=== PATIENT | female | born 1990 | race Caucasian/White ===

== ENCOUNTER 2019-03-17 11:01 | Inpatient (IN) | payer MEDICAID ==
[2019-03-17 12:01] LABS: ABSOLUTE BASOPHILS # (AUTO) 0.1 10^3/uL (0.0-0.2); ABSOLUTE EOSINOPHILS # (AUTO) 0.2 10^3/uL (0.0-0.6); ABSOLUTE LYMPHOCYTES (AUTO) 1.6 10^3/uL (0.5-4.7); ABSOLUTE MONOCYTES (AUTO) 0.8 10^3/uL (0.1-1.4); ABSOLUTE NEUT (AUTO) 12.4 10^3/uL (1.7-8.2); BASOPHILS % (AUTO) 0.5 % (0-2); EOSINOPHILS % (AUTO) 1.4 % (0-6); HEMATOCRIT 29.9 % (36.0-47.0); HEMOGLOBIN 10.1 g/dL (12.0-15.5); LYMPHOCYTES % (AUTO) 10.9 % (13-45); MEAN CORPUSCULAR HEMOGLOBIN 29.7 pg (27.0-33.4); MEAN CORPUSCULAR HGB CONC 33.8 g/dL (32.0-36.0); MEAN CORPUSCULAR VOLUME 88 fl (80-97); MONOCYTES % (AUTO) 5.4 % (3-13); PLATELET COUNT 252 10^3/uL (150-450); RED BLOOD COUNT 3.41 10^6/uL (3.72-5.28); RED CELL DISTRIBUTION WIDTH 13.9 % (11.5-14.0); SEGMENTED NEUTROPHILS % (AUTO) 81.8 % (42-78); TOTAL CELLS COUNTED % (AUTO) 100 %; WHITE BLOOD COUNT 15.2 10^3/uL (4.0-10.5)
[2019-03-17 12:18] LABS: ALBUMIN 3.2 g/dL (3.5-5.0); ALKALINE PHOSPHATASE 141 U/L (38-126); ANION GAP 9 (5-19); ASPARTATE AMINO TRANSFERASE 20 U/L (14-36); BILIRUBIN,DIRECT 0.1 mg/dL (0.0-0.4); BILIRUBIN,TOTAL 0.2 mg/dL (0.2-1.3); BLOOD UREA NITROGEN 4 mg/dL (7-20); CALCIUM 8.8 mg/dL (8.4-10.2); CARBON DIOXIDE 23 mmol/L (22-30); CHLORIDE 103 mmol/L (98-107); GLUCOSE 81 mg/dL (75-110); TOTAL PROTEIN 5.7 g/dL (6.3-8.2); URIC ACID 5.6 mg/dL (2.5-6.2)
[2019-03-17 12:21] LABS: POTASSIUM 2.9 mmol/L (3.6-5.0)
[2019-03-17 12:35] LABS: APPEARANCE,URINE CLOUDY; BILIRUBIN,URINE NEGATIVE (NEGATIVE); COLOR,URINE YELLOW; GLUCOSE, URINE NEGATIVE (NEGATIVE); KETONES,URINE NEGATIVE (NEGATIVE); LEUKOCYTE ESTERASE,URINE MODERATE (NEGATIVE); NITRITE,URINE NEGATIVE (NEGATIVE); PROTEIN,URINE NEGATIVE (NEGATIVE); URINE SPECIFIC GRAVITY 1.002; UROBILINOGEN,URINE NEGATIVE mg/dL (<2.0)
[2019-03-17 12:59] LABS: URINE AMPHETAMINES SCREEN NEGATIVE; URINE BARBITURATES SCREEN NEGATIVE; URINE BENZODIAZEPINES SCREEN NEGATIVE; URINE COCAINE SCREEN NEGATIVE; URINE MARIJUANA (THC) SCREEN NEGATIVE; URINE METHADONE SCREEN NEGATIVE; URINE PHENCYCLIDINE SCREEN NEGATIVE
[2019-03-17 13:11] LABS: UR PRO/CREAT RATIO RESULT 1.7 mg/mg (0.0-0.2); URINE CREATININE 19.6 mg/dL (16-327); URINE PROTEIN 32.9 mg/dL (<12)
[2019-03-17] MEDS ORDERED: BETAMET ACET/BETAMET NA INJ 6 MG/1 ML IM SCH (13:30)
[2019-03-17] MEDS ORDERED: RINGERS SOLUTION,LACTATED 1,000 ML IV PRN (13:52)
[2019-03-17] MEDS ORDERED: BETAMET ACET/BETAMET NA INJ 6 MG/1 ML ONE (14:44)
[2019-03-17] MEDS: LABETALOL HCL 200 MG TABLET PO SCH ×2 (16:14→22:39)
[2019-03-17 17:57] LABS: CHLAM PCR NOT DETECTED (NOT DETECT)
[2019-03-17] MEDS: POTASSIUM CHLORIDE 10 MEQ CAPSULE.ER PO SCH (19:03)
[2019-03-17] MEDS: FAMOTIDINE 20 MG TABLET PO SCH (22:40)
[2019-03-18] MEDS ORDERED: MAG HYDROX/AL HYDROX/SIMETH SUSP 30 ML UDCUP PO ONE (02:00)
[2019-03-18 06:28] LABS: HEMATOCRIT 30.3 % (36.0-47.0); MEAN CORPUSCULAR HEMOGLOBIN 29.2 pg (27.0-33.4); MEAN CORPUSCULAR VOLUME 88 fl (80-97); PLATELET COUNT 272 10^3/uL (150-450); RED BLOOD COUNT 3.43 10^6/uL (3.72-5.28); WHITE BLOOD COUNT 19.3 10^3/uL (4.0-10.5)
[2019-03-18 06:49] LABS: ALBUMIN 3.3 g/dL (3.5-5.0); ALKALINE PHOSPHATASE 149 U/L (38-126); ANION GAP 11 (5-19); ASPARTATE AMINO TRANSFERASE 24 U/L (14-36); BILIRUBIN,DIRECT 0.2 mg/dL (0.0-0.4); BILIRUBIN,TOTAL 0.2 mg/dL (0.2-1.3); BLOOD UREA NITROGEN 6 mg/dL (7-20); CALCIUM 9.4 mg/dL (8.4-10.2); CARBON DIOXIDE 23 mmol/L (22-30); CHLORIDE 103 mmol/L (98-107); GLUCOSE 115 mg/dL (75-110); POTASSIUM 3.4 mmol/L (3.6-5.0); URIC ACID 6.2 mg/dL (2.5-6.2)
[2019-03-18 06:55] LABS: ABSOLUTE LYMPHOCYTES# (MANUAL) 0.6 10^3/uL (0.5-4.7); ABSOLUTE MONOCYTES # (MANUAL) 0.4 10^3/uL (0.1-1.4); BAND NEUTROPHILS % (MANUAL) 8 % (3-5); BASOPHILS % (MANUAL) 0 % (0-2); EOSINOPHILS % (MANUAL) 0 % (0-6); LYMPHOCYTES % (MANUAL) 3 % (13-45); MONOCYTES % (MANUAL) 2 % (3-13); NUCLEATED RED BLOOD CELLS 1 /100 WBC (0); SEGMENTED NEUTROPHILS % (MAN) 87 % (42-78); TOTAL CELLS COUNTED 100
[2019-03-18 06:56] LABS: ANISOCYTOSIS 1+; PLATELET COMMENT ADEQUATE; POLYCHROMASIA 1+
[2019-03-18] MEDS: POTASSIUM CHLORIDE 10 MEQ CAPSULE.ER PO SCH (10:32)
[2019-03-18] MEDS: FAMOTIDINE 20 MG TABLET PO SCH ×2 (10:33→21:30)
[2019-03-18] MEDS: PRENATAL VITAMIN W DHA CAPSULE PO SCH (10:33)
[2019-03-18] MEDS: LABETALOL HCL 200 MG TABLET PO SCH ×2 (10:33→21:30)
[2019-03-18] MEDS ORDERED: BETAMET ACET/BETAMET NA INJ 6 MG/1 ML IM SCH (15:00)
[2019-03-18 15:04] LABS: 24 HOUR URINE PROTEIN RESULT 1035 mg/day (42-225); URINE PROTEIN 46.2 mg/dL (<12)
[2019-03-18] MEDS: FERROUS SULFATE 325 MG TABLET PO SCH (15:25)
[2019-03-19] MEDS: LABETALOL HCL 200 MG TABLET PO SCH (10:04)
--- NOTE | 2019-03-19 10:05 | PDOC DISCHARGE SUMMARY ---
General - Admit/Disc Date/PCP Admission Date/Primary Care Provider: 03/17/19 13:42 DI QUIJANO MD Discharge Date: 03/19/19 - Additional Information Resuscitation Status: Full Code Discharge Diet: As Tolerated Discharge Activity: Activity As Tolerated, Balance Activity w/Rest, Walk Frequently Prescriptions: Labetalol HCl [Normodyne 200 mg Tablet] 100 mg PO Q12 #60 tablet Home Medications: Folic Acid [Folvite 1 mg Tablet] 1 mg PO DAILY 03/17/19 Pnv No.95/Ferrous Fum/Folic AC [ Vitamin Tablet] 1 each PO DAILY 03/17/19 Ranitidine HCl [Zantac] 150 mg PO BID 03/17/19 Labetalol HCl [Normodyne 200 mg Tablet] 100 mg PO Q12 #60 tablet 03/19/19 History of Present Illness History of Present Illness: ELIUD CHENEY is a 29 year old female 33 weeks observed for pre-eclampsia Hospital Course Hospital Course: blood pressure are in acceptable range discussed need for surveillance and to return if symptoms warrant Physical Exam - Physical Exam Vital Signs: Temp Pulse Resp BP Pulse Ox 97.5 F 71 14 147/86 H 99 03/19/19 07:48 03/19/19 07:48 03/19/19 07:48 03/19/19 07:48 03/19/19 07:48 Intake & Output 03/18/19 03/19/19 03/20/19 06:59 06:59 06:59 Intake Total 1550 Balance 1550 Weight 103.2 kg 103 kg General appearance: PRESENT: no acute distress Result Laboratory Results: 03/18/19 05:05 03/18/19 05:05 03/17/19 14:30 Ur 24 Hour Volume 2240 Ur Total Protein 24 Hr 1035 H Plan Discharge Plan: continue labetalol follow up in am for nst/neo return if symptoms warrant Time Spent: Less than 30 Minutes Acute Heart Failure - Is this a Heart Failure Patient?: No
[2019-03-19] MEDS: FAMOTIDINE 20 MG TABLET PO SCH (10:06)
[2019-03-19] MEDS: FERROUS SULFATE 325 MG TABLET PO SCH (10:06)
[2019-03-19] MEDS: POTASSIUM CHLORIDE 10 MEQ CAPSULE.ER PO SCH (10:07)
[2019-03-19] MEDS: PRENATAL VITAMIN W DHA CAPSULE PO SCH (10:07)
--- NOTE | 2019-03-19 10:30 | PDOC PROGRESS REPORT ---
Subjective Progress Note for:: 03/19/19 Subjective:: (Late entry note from 18 March 2019-afternoon) Pt reports good fm, no vb, no lof and no regular contractions. Pt denies headaches, visual changes, epigastric and RUQ pain. Pt states since she has been hospitalized she has less courtesy booth cashier facial swelling. Reason For Visit: - preeclampsia Physical Exam - Physical Exam Vital Signs: Temp Pulse Resp BP Pulse Ox 97.5 F 71 14 147/86 H 99 03/19/19 07:48 03/19/19 07:48 03/19/19 07:48 03/19/19 07:48 03/19/19 07:48 Intake & Output 03/18/19 03/19/19 03/20/19 06:59 06:59 06:59 Intake Total 1550 Balance 1550 Weight 103.2 kg 103 kg General appearance: PRESENT: no acute distress, cooperative, obese, well-devel oped Head exam: PRESENT: atraumatic, normocephalic Eye exam: PRESENT: EOMI Mouth exam: PRESENT: moist Pulses: PRESENT: normal dorsalis pedis pul GI/Abdominal exam: PRESENT: soft, other - gravid and NT Extremities exam: PRESENT: +1 edema, other - negative homans Musculoskeletal exam: PRESENT: ambulatory, full ROM Neurological exam: PRESENT: alert, awake, oriented to person, oriented to place, oriented to time, oriented to situation, normal gait Psychiatric exam: PRESENT: normal mood Skin exam: PRESENT: intact, warm Result Laboratory Results: 03/18/19 05:05 03/18/19 05:05 03/17/19 14:30 Ur 24 Hour Volume 2240 Ur Total Protein 24 Hr 1035 H Assessment & Plan - Diagnosis (1) Pre-eclampsia Qualifiers: Trimester: third trimester Qualified Code(s): O14.93 - Unspecified pre- eclampsia, third trimester Is this a current diagnosis for this admission?: Yes - Plan Summary Plan Summary: Continue current dose of labetalol Patient to receive second dose of BTM for status and noted preeclampsia GBS pending Expect will be able to discharge tomorrow morning 19 March 2019 on modified bed rest Plan of care going forward until delivery discussed Discussed with pt and mild preeclampsia need to deliver late or early term, patient and understanding; Questions answered
[2019-03-19 10:54] VITALS: BP 141/92
== END 2019-03-19 11:09 | disposition home or self-care (01) | DRG 833 ==
LOC: LC 11:01 → LR 13:42 → 2N 15:35
PROVIDERS: ADMIT Obstetrics & Gynecology Gynecology; ATTEND Obstetrics & Gynecology Gynecology
DX: O14.93 Unspecified pre-eclampsia, third trimester (principal); O99.213 Obesity complicating pregnancy, third trimester; Z3A.33 33 weeks gestation of pregnancy
CPT/HCPCS: 36415; 80053; 80307; 81001; 82570; 83615; 84156; 84550; 85025; 86592; 86850; 86900; 86901; 87081; 87086; 87491; 87591; J0702; J3490

== ENCOUNTER 2019-03-20 06:35 | Inpatient (IN) | payer MEDICAID ==
--- NOTE | 2019-03-20 06:41 | Admission Physical ---
Datetime Report Generated by CPN: 03/20/2019 06:41 CURRENT ADMISSION Chief Complaint: Sent from OB Office for Evaluation and Treatment - Please Specify Chief Complaint Other: for severe range BPs in office today Indication for Induction: Not Applicable Admit Impression : , Intrauterine ; No Active Labor Admit Plan: Admit to Unit Admit Plan- Other: then transfer to post ALLERGIES Medication Allergies: No Medication Allergies: No Known Allergies (03/17/2019) Latex: No Latex Allergies OBSTETRICAL HISTORY EDC: 05/07/2019 00:00 : 1 Para: 0 Term: 0 : 0 SAB: 0 IAB: 0 Livin Gestational Diabetes: No Rh Sensitization: No Incompetent Cervix: No MALINI: No Infertility: No ART Treatment: No Uterine Anomaly: No IUGR: No Hx Previous C/S: No Macrosomia: No Hx Loss/Stillborn: No PIH: Yes Hx : No Placenta Previa/Abruption: No Depression/PP Depression: No PTL/PROM: No Post Hemorrhage: No Current Procedures: Ultrasound; NST SEE RECORDS Alcohol: No Marijuana : No Cocaine: No Other Illicit Drugs: No Cigarettes: Never Smoker. [id number] MEDICAL HISTORY Diabetes: No Blood Transfusion: No Pulmonary Disease (Asthma, TB): No Breast Disease: No Hypertension: No Automotive Paint Technician Surgery: Yes Heart Disease: No Hosp/Surgery: No Autoimmune Disorder: No Anesthetic Complications: No Kidney Disease: No Abnormal Pap Smear: Yes Neuro/Epilepsy: No Psychiatric Disorders: No Other Medical Diseases: No Hepatitis/Liver Disease: No Significant Family History: No Varicosities/Phlebitis: No Trauma/Violence : No Thyroid Dysfunction: No Medical History Comments: Has had cone bx INFECTIOUS HISTORY Gonorrhea: No Genital Herpes: No Chlamydia: Yes Tuberculosis: No Syphilis: No Hepatitis: No HIV/AIDS Exposure: No Rash or Viral Illness: No HPV: No Infectious History Comments: Chl 2011 PHYSICAL EXAM General: Normal HEENT: Normal Neurologic: Abnormal Thyroid: Deferred Heart: Normal Lungs: Normal Breast: Deferred Back: Normal Abdomen: Normal Genitourinary Exam: Normal Extremities: Abnormal DTRs: Abnormal Pelvic Type: Adequate Physical Exam Comments: DTRs 3+/3+ with + clonus Vital Signs: Reviewed Details Vital Signs: high BP VAGINAL EXAM Contraction Comments: none FETUS A EGA: 32.5 Monitoring: External US FHR- Baseline: 135 Variability: Moderate 6-25bpm Accelerations: 15X15 Decelerations: None FHR Category: Category I Presentation: Breech Presentation- Other: by sono today Admit Comment: G1 sent from office for evaluation for elevated BP today only. denies JOEL/visual changes/RUQ pain. discussed POC with dr patrick. will admit, get GBS culture, obtain 24h urine for protein, give steroids PLANS FOR LABOR AND DELIVERY Labor and Delivery: None Pain Management: Epidural Feeding Preference: Breast Benefit of Breast Feed Discussed: Yes Circumcision: N/A INFORMED CONSENT Assignment: Arun Patrick MD Signature: with User ID: [email or web address] : with User ID: [email or web address]
[2019-03-20] MEDS ORDERED: HYDRALAZINE HCL INJ/PF 20 MG/1 ML SDV ONE (06:58)
[2019-03-20 07:22] LABS: HEMOGLOBIN 9.1 g/dL (12.0-15.5); MEAN CORPUSCULAR HEMOGLOBIN 30.1 pg (27.0-33.4); MEAN CORPUSCULAR HGB CONC 33.7 g/dL (32.0-36.0); MEAN CORPUSCULAR VOLUME 89 fl (80-97); PLATELET COUNT 242 10^3/uL (150-450); RED BLOOD COUNT 3.03 10^6/uL (3.72-5.28); RED CELL DISTRIBUTION WIDTH 14.1 % (11.5-14.0); WHITE BLOOD COUNT 19.9 10^3/uL (4.0-10.5)
[2019-03-20] MEDS ORDERED: HYDRALAZINE HCL INJ/PF 20 MG/1 ML SDV IV ONE (07:29)
[2019-03-20 07:30] LABS: ALBUMIN 3.2 g/dL (3.5-5.0); ALKALINE PHOSPHATASE 137 U/L (38-126); ANION GAP 9 (5-19); ASPARTATE AMINO TRANSFERASE 26 U/L (14-36); BILIRUBIN,DIRECT 0.2 mg/dL (0.0-0.4); BILIRUBIN,TOTAL 0.2 mg/dL (0.2-1.3); BLOOD UREA NITROGEN 8 mg/dL (7-20); CALCIUM 8.9 mg/dL (8.4-10.2); CARBON DIOXIDE 25 mmol/L (22-30); CHLORIDE 104 mmol/L (98-107); GLUCOSE 91 mg/dL (75-110); POTASSIUM 3.1 mmol/L (3.6-5.0); URIC ACID 6.6 mg/dL (2.5-6.2)
[2019-03-20 07:38] LABS: APPEARANCE,URINE SLIGHTLY-CLOUDY; BILIRUBIN,URINE NEGATIVE (NEGATIVE); COLOR,URINE YELLOW; GLUCOSE, URINE NEGATIVE (NEGATIVE); KETONES,URINE NEGATIVE (NEGATIVE); LEUKOCYTE ESTERASE,URINE NEGATIVE (NEGATIVE); NITRITE,URINE NEGATIVE (NEGATIVE); PROTEIN,URINE >=500 mg/dL (NEGATIVE); URINE SPECIFIC GRAVITY 1.012; UROBILINOGEN,URINE NEGATIVE mg/dL (<2.0)
[2019-03-20 07:48] LABS: ABSOLUTE LYMPHOCYTES# (MANUAL) 2.4 10^3/uL (0.5-4.7); BAND NEUTROPHILS % (MANUAL) 1 % (3-5); BASOPHILS % (MANUAL) 0 % (0-2); EOSINOPHILS % (MANUAL) 0 % (0-6); LYMPHOCYTES % (MANUAL) 12 % (13-45); METAMYELOCYTES % (MANUAL) 2 % (0); MONOCYTES % (MANUAL) 0 % (3-13); NUCLEATED RED BLOOD CELLS 1 /100 WBC (0); SEGMENTED NEUTROPHILS % (MAN) 85 % (42-78); TOTAL CELLS COUNTED 100
[2019-03-20 07:49] LABS: ANISOCYTOSIS SLIGHT; OVALOCYTES SLIGHT; PLATELET COMMENT ADEQUATE; POIKILOCYTOSIS SLIGHT; POLYCHROMASIA SLIGHT; TEAR DROP CELLS SLIGHT
[2019-03-20 08:03] LABS: URINE CREATININE 100.5 mg/dL (16-327)
[2019-03-20 08:11] LABS: URINE AMPHETAMINES SCREEN NEGATIVE; URINE BARBITURATES SCREEN NEGATIVE; URINE BENZODIAZEPINES SCREEN NEGATIVE; URINE MARIJUANA (THC) SCREEN NEGATIVE; URINE METHADONE SCREEN NEGATIVE; URINE PHENCYCLIDINE SCREEN NEGATIVE
[2019-03-20] MEDS ORDERED: MAGNESIUM SULFATE 20 GM/500 ML RTUINJ IV ONE ×2 (08:13→10:18)
[2019-03-20] MEDS ORDERED: MAGNESIUM SULFATE 4 GM/100 ML RTUPB IV ONE (08:13)
[2019-03-20 08:17] LABS: UR PRO/CREAT RATIO RESULT 3.6 mg/mg (0.0-0.2)
[2019-03-20 08:19] LABS: URINE COCAINE SCREEN NEGATIVE
[2019-03-20] MEDS ORDERED: CITRIC ACID/SODIUM CITRATE ORAL SOLN 15 ML UDCUP ONE (08:40)
[2019-03-20] MEDS ORDERED: CEFAZOLIN 1 GM/D5W RTU 1 GM/50 ML RTUPB IV ONE ×2 (08:40→08:41)
--- NOTE | 2019-03-20 08:51 | Admission Physical ---
Datetime Report Generated by CPN: 03/20/2019 08:51 CURRENT ADMISSION Chief Complaint: Signs/Symptoms Gestational HTN Chief Complaint Other: pt with PreE with >1gm of protein in 24 hour urine. received ACS over the weekend, came in earlier this AM with worsening pressures. Indication for Induction: Not Applicable Admit Impression : , Intrauterine ; Primary Section Admit Impression- Other: Breech presentation, BPP subjectively low. CHARLES 12 Admit Plan: Admit to Unit; Initiate Section Protocol Admit Plan- Other: Magnesium Sulfate started with 4 gm load. ALLERGIES Medication Allergies: No Medication Allergies: No Known Allergies (03/20/2019) Latex: No Latex Allergies OBSTETRICAL HISTORY EDC: 05/07/2019 00:00 : 1 Para: 0 Term: 0 : 0 SAB: 0 IAB: 0 Livin Gestational Diabetes: No Rh Sensitization: No Incompetent Cervix: No MALINI: No Infertility: No ART Treatment: No Uterine Anomaly: No IUGR: No Hx Previous C/S: No Macrosomia: No Hx Loss/Stillborn: No PIH: Yes Hx : No Placenta Previa/Abruption: No Depression/PP Depression: No PTL/PROM: No Post Hemorrhage: No Current Procedures: Ultrasound; NST Obstetrical History Comments: g1-current pree SEE RECORDS Alcohol: No Marijuana : No Cocaine: No Other Illicit Drugs: No Cigarettes: Never Smoker. [id number] MEDICAL HISTORY Diabetes: No Blood Transfusion: No Pulmonary Disease (Asthma, TB): No Breast Disease: No Hypertension: No Food Crops Farm Hand Surgery: Yes Heart Disease: No Hosp/Surgery: No Autoimmune Disorder: No Anesthetic Complications: No Kidney Disease: No Abnormal Pap Smear: Yes Neuro/Epilepsy: No Psychiatric Disorders: No Other Medical Diseases: No Hepatitis/Liver Disease: No Significant Family History: No Varicosities/Phlebitis: No Trauma/Violence : No Thyroid Dysfunction: No Medical History Comments: Has had cone bx INFECTIOUS HISTORY Gonorrhea: No Genital Herpes: No Chlamydia: Yes Tuberculosis: No Syphilis: No Hepatitis: No HIV/AIDS Exposure: No Rash or Viral Illness: No HPV: No Infectious History Comments: Chl 2011 PHYSICAL EXAM General: Normal HEENT: Normal Neurologic: Normal Thyroid: Normal Heart: Normal Lungs: Normal Breast: Normal Back: Normal Abdomen: Normal Genitourinary Exam: Normal Extremities: Normal DTRs: Normal Pelvic Type: Adequate Physical Exam Comments: DTRs 3+/3+ with + clonus Vital Signs: Reviewed Details Vital Signs: systolics 160s-200s VAGINAL EXAM Contraction Comments: none FETUS A EGA: 33.1 Monitoring: External US FHR- Baseline: 160 Variability: Minimal - Undetectable to <=5bpm Accelerations: Absent Decelerations: None FHR Category: Category III Estimated Weight (gm): 2000 Presentation: Breech Presentation- Other: by sono today Admit Comment: d/w pt and FOB regarding delivery due to BPs and well being. Explained that Mag and ACS protocol will help, but cannot gaurantee baby's well being and may still required tertiary care interventions depending on how baby responds to delivery. voice understanding. will proceed with primary c/s for breech presentation PLANS FOR LABOR AND DELIVERY Labor and Delivery: None Pain Management: Epidural Feeding Preference: Breast Benefit of Breast Feed Discussed: Yes Circumcision: N/A INFORMED CONSENT Assignment: Arun Berg MD Signature: with User ID: [email or web address] : with User ID: [email or web address]
[2019-03-20] MEDS ORDERED: CEFAZOLIN SODIUM 2 GM in DEXTROSE 5%-WATER 50 ML IV PRN (08:55)
[2019-03-20] MEDS ORDERED: MORPHINE SULFATE 10 MG/ML INJ ONE ×3 (09:03→16:07)
[2019-03-20] MEDS ORDERED: OXYTOCIN/NORMAL SALINE 20 UNIT/1,000 ML RTUINJ ONE (09:03)
[2019-03-20] MEDS ORDERED: MIDAZOLAM 2 MG/2 ML INJ ONE ×2 (09:03→09:34)
[2019-03-20] MEDS ORDERED: OXYTOCIN 10 UNIT/ML VIAL ONE (09:03)
[2019-03-20] MEDS ORDERED: ONDANSETRON HCL INJ/PF 4 MG/2 ML SDV ONE (09:04)
--- NOTE | 2019-03-20 09:26 | RADIOLOGY REPORT (SQ) ---
EXAM DESCRIPTION: U/S PROFILE W/O STRESS COMPLETED DATE/TIME: 03/20/2019 9:13 am REASON FOR STUDY: BPP PRE e COMPARISON: None. TECHNIQUE: Limited waed-scale realtime and static images of the fetus to measure specified parameter s. LIMITATIONS: None. FINDINGS: HEART RATE: 144 beats per minute. CHARLES: 12.6 cm. BREATHING MOVEMENT: 0 points. MOVEMENT: 0 points. POSTURE AND TONE: 0 points. QUALITATIVE CHARLES: 2 points. OTHER: No other significant finding. IMPRESSION: BIOPHYSICAL PROFILE: 09/16. Trimester of : Third - 28 weeks to delivery RECOMMENDATION: The exam was performed as a portable study in the Labor and Delivery Department. Th e ordering physician ended the study to take the patient to the operating room. COMMENT: BREATHING MOVEMENTS: 2 POINTS: PRESENT 0 POINTS: ABSENT MOTION: 2 POINTS: PRESENT 0 POINTS: ABSENT TONE: 2 POINTS: PRESENT 0 POINTS: ABSENT AMNIOTIC FLUID VOLUME: 2 POINTS: LARGEST POCKET GREATER THAN 2 CM DEPTH. 0 POINTS: NO POCKET OF 2 CM. TECHNICAL DOCUMENTATION: JOB ID: [id number] [employer]- All Rights Reserved Reading location - IP/workstation name: [email or web address]
--- NOTE | 2019-03-20 09:29 | RADIOLOGY REPORT (SQ) ---
EXAM DESCRIPTION: U/S OB LIMITED COMPLETED DATE/TIME: 03/20/2019 9:13 am REASON FOR STUDY: CHARLES and position PRE e COMPARISON: None. TECHNIQUE: Limited transabdominal grayscale ultrasound for evaluation of specific requested obstetri maximiliano parameters. LIMITATIONS: None. FINDINGS: CHARLES: 12.4 cm. FHR: 150 beats per minute. PRESENTATION: Breech. PLACENTA: Fundal ANATOMY: Not assessed OTHER: No other significant findings. IMPRESSION: LIMITED OBSTETRICAL ULTRASOUND WITH MEASURED PARAMETERS DELINEATED ABOVE. Trimester of : Third trimester - 28 weeks to delivery. COMMENT: The exam was performed as a portable study in the Labor and Delivery Department. The order ing physician ended the study to take the patient to the operating room. TECHNICAL DOCUMENTATION: JOB ID: [id number] [employer]- All Rights Reserved Reading location - IP/workstation name: [email or web address]
[2019-03-20] MEDS ORDERED: OXYCODONE-ACETAMINOPHEN 5-325 MG TABLET PO PRN (10:06)
[2019-03-20] MEDS ORDERED: SIMETHICONE 80 MG TAB.CHEW PO PRN (10:06)
[2019-03-20] MEDS ORDERED: MEASLES,MUMPS&RUBELLA VACC/PF 0.5 ML VIAL SUBCUT PRN (10:06)
[2019-03-20] MEDS ORDERED: ACETAMINOPHEN 325 MG TABLET PO PRN (10:06)
[2019-03-20] MEDS ORDERED: RINGERS SOLUTION,LACTATED 1,000 ML IV PRN (10:06)
[2019-03-20] MEDS ORDERED: ACETAMINOPHEN 1,000 MG/100 ML RTUPB IV PRN (10:06)
[2019-03-20] MEDS ORDERED: DIPH/PERTUSS(ACELL)/TETANUS VAC/PF 0.5 ML SYR (>=10YO) IM PRN (10:06)
[2019-03-20] MEDS ORDERED: PROMETHAZINE HCL INJ 25 MG/1 ML VIAL IV PRN (10:06)
[2019-03-20] MEDS ORDERED: OXYTOCIN/NORMAL SALINE 20 UNIT/1,000 ML RTUINJ IV PRN (10:06)
--- NOTE | 2019-03-20 10:12 | Operative Report ---
Operative Report DATE OF SURGERY: 03/20/19 PREOPERATIVE DIAGNOSIS: IUP @ 33 1/7 wks. Severe Pre Eclampsia, breech present ation, non-reassuring status POSTOPERATIVE DIAGNOSIS: Same OPERATION: Low transverse hysterotomy section SURGEON: JONATHAN RHOADES ANESTHESIA: Spinal TISSUE REMOVED OR ALTERED: placenta COMPLICATIONS: none ESTIMATED BLOOD LOSS: 750 cc INTRAOPERATIVE FINDINGS: Normal uterus tubes and ovaries were consistent with gestational age PROCEDURE: PROCEDURE IN DETAIL: The patient was taken to the operating room, prepared and draped in a normal sterile fashion in a supine position with a leftward tilt. A transverse skin incision was made with a scalpel and carried through to the underlying layer of fascia with the same scalpel. The fascia was excised in the midline and extended laterally with Jorge A. The fascia was then dissected from the rectus muscle sharply with Jorge A and the rectus muscle was divided and the peritoneal cavity was entered sharply with the same Metzenbaum. With good visualization of the bladder and the uterus the bladder blade was inserted. The hysterotomy was nicked with a scalpel and extended laterally with surgeon finger fraction. The was then delivered atraumatically. The nose and mouth were suctioned with a suction bulb, the cord was clamped and cut and handed off to awaiting pediatricians. Cord blood was collected. The placenta was removed manually. The uterus was exteriorized and cleared of clots and debris. The hysterotomy was closed with 0 Monocryl in a running, locked fashion. A second layer of the same suture was used to imbricate to ensure hemostasis. The uterus was returned to the abdomen and peritoneal cavity was cleared of clots and debris. The rectus muscle and peritoneum were repaired with mattress stitch of 2-0 Chromic. The fascia was closed with 0-Vicryl. The subcutaneous layer was closed with plain catgut and the skin was closed with 4-0 Vicryl. The patient tolerated the procedure well. Sponge, lap, and needle counts correct x2 and the patient was taken to recovery in stable condition.
[2019-03-20] MEDS ORDERED: FENTANYL CITRATE INJ/PF 100 MCG/2 ML AMPUL ONE (10:47)
[2019-03-20] MEDS ORDERED: FENTANYL CITRATE INJ/PF 100 MCG/2 ML AMPUL IV ONE (11:08)
[2019-03-20] MEDS: MORPHINE SULFATE 10 MG/ML INJ IV PRN ×2 (11:56→16:14)
[2019-03-20] MEDS ORDERED: KETOROLAC TROMETHAMINE INJ/PF 30 MG/1 ML SDV ONE (17:29)
[2019-03-20] MEDS ORDERED: OXYCODONE-ACETAMINOPHEN 5-325 MG TABLET ONE ×2 (17:29→22:17)
[2019-03-20] MEDS: OXYCODONE-ACETAMINOPHEN 5-325 MG TABLET PO PRN ×2 (17:33→22:19)
[2019-03-20] MEDS: KETOROLAC TROMETHAMINE INJ/PF 30 MG/1 ML SDV IV SCH (17:33)
[2019-03-21] MEDS: KETOROLAC TROMETHAMINE INJ/PF 30 MG/1 ML SDV IV SCH ×3 (02:32→17:37)
[2019-03-21 06:59] LABS: HEMATOCRIT 26.2 % (36.0-47.0); HEMOGLOBIN 8.9 g/dL (12.0-15.5); MEAN CORPUSCULAR HEMOGLOBIN 30.2 pg (27.0-33.4); MEAN CORPUSCULAR VOLUME 89 fl (80-97); PLATELET COUNT 240 10^3/uL (150-450); RED BLOOD COUNT 2.94 10^6/uL (3.72-5.28); RED CELL DISTRIBUTION WIDTH 14.5 % (11.5-14.0); WHITE BLOOD COUNT 13.3 10^3/uL (4.0-10.5)
[2019-03-21] MEDS: DOCUSATE SODIUM 100 MG CAPSULE PO SCH ×3 (07:39→17:36)
[2019-03-21] MEDS: PRENATAL VITAMIN W DHA CAPSULE PO SCH (09:59)
[2019-03-21] MEDS: OXYCODONE-ACETAMINOPHEN 5-325 MG TABLET PO PRN ×2 (10:14→18:25)
--- NOTE | 2019-03-21 12:09 | PDOC PROGRESS REPORT ---
Subjective-OB Progress Note for:: 03/21/19 Subjective: Resting n bed, states baby is stable, pain under control, eating well, passing gas, pain under control Physical Exam (OB) Vital Signs: Temp Pulse Resp BP Pulse Ox 98.6 F 84 16 156/98 H 96 03/21/19 08:29 03/21/19 08:29 03/21/19 08:29 03/21/19 08:29 03/21/19 08:29 Intake & Output 03/20/19 03/21/19 03/22/19 06:59 06:59 06:59 Output Total 875 Balance -875 Weight 100 kg - PIH/Pre-Eclampsia Headache: Absent Epigastric Pain: No Visual Changes: No - Dressing Removed: No - opsite Incision: Dressing Closure Type: opsite - Lochia Lochia Amount: Scant < 10 ml Lochia Color: Rubra/Red - Abdomen Description: Tender, Soft Hernia Present: No Fundal Description: Firm, Midline Fundal Height: u/u - u/2 Objective-Diagnostic Laboratory: 03/21/19 06:40 03/20/19 06:58 03/20/19 03/21/19 06:58 06:40 WBC 13.3 H RBC 2.94 L Hgb 8.9 L Hct 26.2 L MCV 89 MCH 30.2 MCHC 34.0 RDW 14.5 H Plt Count 240 Blood Type O POSITIVE Antibody Screen NEGATIVE Assessment and Plan(PN) - Assessment and Plan (1) Breech presentation delivered Is this a current diagnosis for this admission?: Yes (2) delivered by section, 1,750-1,999 grams, 33-34 completed weeks Is this a current diagnosis for this admission?: Yes (3) Pre-eclampsia Qualifiers: Trimester: third trimester Is this a current diagnosis for this admission?: Yes - Time Spent with Patient Time with patient: Less than 15 minutes Medications reviewed and adjusted accordingly: Yes - Disposition Anticipated Discharge: Home Within: within 48 hours
[2019-03-21] MEDS: LABETALOL HCL 200 MG TABLET PO SCH ×2 (14:32→21:25)
[2019-03-21] MEDS: IBUPROFEN 800 MG TABLET PO SCH ×2 (17:36→23:17)
[2019-03-22] MEDS: KETOROLAC TROMETHAMINE INJ/PF 30 MG/1 ML SDV IV SCH ×3 (01:55→17:12)
[2019-03-22] MEDS: IBUPROFEN 800 MG TABLET PO SCH ×4 (05:23→23:29)
--- NOTE | 2019-03-22 08:43 | Delivery Summary ---
Del Sum A-C Datetime Report Generated by CPN: 03/22/2019 08:43 DELIVERY PERSONNEL DELIVERY PERSONNEL: [id number] Delivery Doctor:: Elba Arevalo MD Anesthesiologist:: Price Garrison MD CORN COOKER:: Alex Lacey CRNA Labor and Delivery Nurse:: Omaira Morin RN Wire Mill Operator:: Omaira Morin RN Nursery Nurse:: Audrey Florez RN Studio Couch Frame Builder/UNION LABORER: Sobia Jorge CST Studio Couch Frame Builder/UNION LABORER: Fernanda Quiros CST Studio Couch Frame Builder/UNION LABORER: Fernanda Quiros, MICROCOMPUTER SUPPORT SPECIALIST MATERNAL INFORMATION Delivery Anesthesia: Spinal Medications After Delivery: Pitocin Drip 20 Units/1000ml NSS Delivery QBL: 770 Complication Details: pre eclampsia LABOR SUMMARY EDC: 05/07/2019 00:00 No. Babies in Womb: 1 Attempted: No Labor Anesthesia: None LABOR INFORMATION Reason for Induction: Not Applicable Oxytocin: N/A Group B Beta Strep: 1 NO GROUP B STREPTOCOCCUS RECOVERED Steroids Given: None Reason Steroids Not Administered: Not Applicable MEMBRANES Membranes Rupture Method: Artificial STAGES OF LABOR Stage 3 hr: 0 Stage 3 min: 0 CSECTION DELIVERY Primary Indication: Breech Presentation Secondary Indication: Severe PIH, Unfavorable Cervix CSection Urgency: Non-Scheduled CSection Incidence: Primary Labor: N/A Elective: Nonelective CSection Incision: Lower Uterine Transverse BABY A INFORMATION Delivery Date/Time: 03/20/2019 09:40 Method of Delivery: Born in Route : No : N/A Forceps: N/A Vacuum Extraction: N/A Shoulder Dystocia : No PRESENTATION/POSITION BABY A Presentation: Breech Cephalic Presentation: N/A Vertex Position: n/a Breech Presentation: Jayden PLACENTA INFORMATION BABY A Placenta Delivery Time : 03/20/2019 09:40 Placenta Method of Delivery: Manual Removal Placenta Status: Delivered SCORES BABY A Heart Rate 1 min: >100 bpm Resp Effort 1 min: Good Cry Reflex Irritability 1 min: Cough or Sneeze or Pulls Away Muscle Tone 1 min: Active Motion Color 1 min: Body [place], Extremities Blue Resuscitation Effort 1 min: Tactile Stimulation SCORE 1 MIN: 9 Heart Rate 5 min: >100 bpm Resp Effort 5 min: Good Cry Reflex Irritability 5 min: Cough or Sneeze or Pulls Away Muscle Tone 5 min: Active Motion Color 5 min: Body [place], Extremities Blue Resuscitation Effort 5 min: Tactile Stimulation SCORE 5 MIN: 9 INFORMATION BABY A Gestational Age at Delivery: 33.1 Gestational Status: - <34 Weeks Outcome : Liveborn Condition : Stable Infant Sex: Female WEIGHT/LENGTH BABY A Birthweight (gm): 2032 Infant Weight (lb): 4 Weight (oz): 8 Length (in): 17.00 Length (cm): 43.18 CORD INFORMATION BABY A No. Cord Vessels: 3 Nuchal Cord : N/A Cord Blood Taken: Yes-For Storage (Mom's Blood type +) Infant Suction: None ASSESSMENT BABY A Skin to Skin: Yes BABY B INFORMATION : N/A SIGNATURES : I was personally available for consultation and serving as supervising physician for the MLP.
[2019-03-22] MEDS: PRENATAL VITAMIN W DHA CAPSULE PO SCH (09:41)
[2019-03-22] MEDS: LABETALOL HCL 200 MG TABLET PO SCH ×2 (09:41→21:19)
[2019-03-22] MEDS: DOCUSATE SODIUM 100 MG CAPSULE PO SCH ×2 (09:41→17:08)
[2019-03-22] MEDS: OXYCODONE-ACETAMINOPHEN 5-325 MG TABLET PO PRN ×3 (09:49→21:16)
--- NOTE | 2019-03-22 16:58 | PDOC PROGRESS REPORT ---
Subjective-OB Progress Note for:: 03/22/19 Subjective: Pt doing well, resting bonding with baby. She reports light bleeding, regular diet and voiding without difficulty. Physical Exam (OB) Vital Signs: Temp Pulse Resp BP Pulse Ox 98.8 F 99 16 152/97 H 96 03/22/19 11:39 03/22/19 11:39 03/22/19 11:39 03/22/19 11:39 03/22/19 11:39 Intake & Output 03/21/19 03/22/19 03/23/19 06:59 06:59 06:59 Output Total 875 Balance -875 - PIH/Pre-Eclampsia DTR's: 1 + Clonus: Negative Headache: Absent Epigastric Pain: No Visual Changes: No - Dressing Removed: Yes Incision: Open Closure Type: Surgical Glue - Lochia Lochia Amount: Scant < 10 ml Lochia Color: Rubra/Red - Abdomen Description: Soft, Round Hernia Present: No Fundal Description: Firm, Midline Fundal Height: u/u - u/2 Objective-Diagnostic Laboratory: 03/21/19 06:40 03/20/19 06:58 Assessment and Plan(PN) - Assessment and Plan (1) Breech presentation delivered Is this a current diagnosis for this admission?: Yes (2) Pre-eclampsia Qualifiers: Trimester: third trimester Is this a current diagnosis for this admission?: Yes - Time Spent with Patient Time with patient: Less than 15 minutes Medications reviewed and adjusted accordingly: Yes - Disposition Anticipated Discharge: Home Within: within 24 hours
[2019-03-22] MEDS ORDERED: OXYTOCIN 10 UNIT/ML VIAL ONE (18:55)
[2019-03-22] MEDS ORDERED: LIDOCAINE 1% INJ-PF (10 MG/ML) 30 ML SDV ONE (18:55)
[2019-03-22] MEDS ORDERED: MISOPROSTOL 0.2 MG TABLET ONE (18:55)
[2019-03-22] MEDS ORDERED: OXYTOCIN/NORMAL SALINE 0 UNIT/0 ML RTUINJ ONE (18:55)
[2019-03-22] MEDS ORDERED: NIFEDIPINE 30 MG TAB.ER.24 PO ONE (23:30)
[2019-03-23] MEDS: KETOROLAC TROMETHAMINE INJ/PF 30 MG/1 ML SDV IV SCH ×2 (03:42→10:12)
[2019-03-23] MEDS ORDERED: HYDRALAZINE HCL INJ/PF 20 MG/1 ML SDV IV ONE (04:00)
[2019-03-23] MEDS: IBUPROFEN 800 MG TABLET PO SCH ×3 (05:34→17:24)
[2019-03-23] MEDS: LABETALOL HCL 200 MG TABLET PO SCH ×3 (05:35→21:37)
[2019-03-23] MEDS: OXYCODONE-ACETAMINOPHEN 5-325 MG TABLET PO PRN ×2 (07:52→15:28)
[2019-03-23] MEDS: DOCUSATE SODIUM 100 MG CAPSULE PO SCH ×2 (09:19→17:24)
[2019-03-23] MEDS: PRENATAL VITAMIN W DHA CAPSULE PO SCH (09:19)
--- NOTE | 2019-03-23 10:46 | PDOC PROGRESS REPORT ---
Subjective-OB Progress Note for:: 03/23/19 Subjective: Has a headache today. Physical Exam (OB) Vital Signs: Temp Pulse Resp BP Pulse Ox 98.2 F 84 14 136/95 H 99 03/23/19 10:24 03/23/19 10:24 03/23/19 10:24 03/23/19 10:24 03/23/19 10:24 Intake & Output 03/22/19 03/23/19 03/24/19 06:59 06:59 06:59 Intake Total 1000 Balance 1000 - PIH/Pre-Eclampsia DTR's: 2 + Clonus: Negative Headache: Present Epigastric Pain: No Visual Changes: No - Dressing Removed: Yes Incision: Open, Well Approximated Closure Type: Sutures - Lochia Lochia Amount: Scant < 10 ml Lochia Color: Rubra/Red - Abdomen Description: Tender, Soft, Round Hernia Present: No Bowel Sounds: Normoactive Flatus Presence: Present Stool: Yes Fundal Description: Firm, Midline Fundal Height: u/u - u/2 Objective-Diagnostic Laboratory: 03/21/19 06:40 03/20/19 06:58 Assessment and Plan(PN) - Time Spent with Patient Medications reviewed and adjusted accordingly: Yes - Disposition Anticipated Discharge: Home
[2019-03-24] MEDS: IBUPROFEN 800 MG TABLET PO SCH ×3 (00:15→12:17)
[2019-03-24] MEDS: KETOROLAC TROMETHAMINE INJ/PF 30 MG/1 ML SDV IV SCH ×3 (00:20→15:11)
[2019-03-24] MEDS: LABETALOL HCL 200 MG TABLET PO SCH ×2 (05:48→15:00)
[2019-03-24] MEDS: OXYCODONE-ACETAMINOPHEN 5-325 MG TABLET PO PRN ×3 (05:55→18:08)
[2019-03-24 07:54] LABS: ALBUMIN 3.1 g/dL (3.5-5.0); ALKALINE PHOSPHATASE 103 U/L (38-126); ANION GAP 8 (5-19); ASPARTATE AMINO TRANSFERASE 29 U/L (14-36); BILIRUBIN,DIRECT 0.1 mg/dL (0.0-0.4); BILIRUBIN,TOTAL 0.2 mg/dL (0.2-1.3); BLOOD UREA NITROGEN 10 mg/dL (7-20); CALCIUM 8.9 mg/dL (8.4-10.2); CARBON DIOXIDE 28 mmol/L (22-30); CHLORIDE 102 mmol/L (98-107); GLUCOSE 81 mg/dL (75-110); POTASSIUM 3.3 mmol/L (3.6-5.0); TOTAL PROTEIN 5.6 g/dL (6.3-8.2)
[2019-03-24] MEDS: DOCUSATE SODIUM 100 MG CAPSULE PO SCH ×2 (12:17→18:08)
[2019-03-24] MEDS: PRENATAL VITAMIN W DHA CAPSULE PO SCH (12:17)
--- NOTE | 2019-03-24 12:54 | PDOC DISCHARGE SUMMARY ---
Final Diagnosis Discharge Date: 03/24/19 - POD#4, due to severe Pre-eclampsia at 32 wks, doing well today, denies headache today. Pumping breast milk, baby in the NICU. Started on Labetalol yesterday. - Final Diagnosis (1) Normal course Is this a current diagnosis for this admission?: Yes (2) Breech presentation delivered Is this a current diagnosis for this admission?: Yes (3) delivered by section, 1,750-1,999 grams, 33-34 completed weeks Is this a current diagnosis for this admission?: Yes (4) Pre-eclampsia Is this a current diagnosis for this admission?: Yes Discharge Data - Discharge Medication Prescriptions: Ferrous Sulfate 325 mg PO DAILY 30 Days #30 tablet. Ibuprofen [Motrin 800 mg Tablet] 800 mg PO Q6 #60 tablet Oxycodone HCl/Acetaminophen [Percocet 5-325 mg Tablet] 1 tab PO Q4HP PRN #30 tablet PRN Reason: Pain Scale Of 3 Home Medications: Pnv No.95/Ferrous Fum/Folic AC [ Vitamin Tablet] 1 each PO DAILY 03/17/19 Ranitidine HCl [Zantac] 150 mg PO BID 03/17/19 Labetalol HCl [Normodyne 200 mg Tablet] 100 mg PO Q12 #60 tablet 03/19/19 Ferrous Sulfate 325 mg PO DAILY 30 Days #30 tablet. 03/24/19 Ibuprofen [Motrin 800 mg Tablet] 800 mg PO Q6 #60 tablet 03/24/19 Oxycodone HCl/Acetaminophen [Percocet 5-325 mg Tablet] 1 tab PO Q4HP PRN #30 tablet 03/24/19 Reason(s) for Admission: Ceasarean Section-Primary Admission Note: Severe Pre-eclampsia at 32 wks, breech Procedures: Ultrasound Intrapartum Procedure(s): : Low Cervical, Transverse - Diagnosis Test Laboratory: Temp Pulse Resp BP Pulse Ox 98.2 F 85 16 147/98 H 99 03/24/19 12:14 03/24/19 12:14 03/24/19 12:14 03/24/19 12:14 03/24/19 12:14 03/20/19 03/20/19 03/21/19 06:47 06:58 06:40 RBC 3.03 L 2.94 L Hgb 9.1 L 8.9 L Hct 27.0 L 26.2 L Urine Opiates Screen NEGATIVE - Discharge information/Instructions Discharge Activity: Activity As Tolerated, No Driving, No Lifting Over 10 Pounds, Pelvic Rest Discharge Diet: As Tolerated, Regular Disposition: HOME, SELF-CARE Follow up with: [facility]: [facility], Days - BP check on Wednesday
[2019-03-24 16:39] VITALS: BP 126/83
== END 2019-03-24 18:24 | disposition home or self-care (01) | DRG 788 ==
LOC: LC 06:35 → LR 07:58 → 2S 22:40
PROVIDERS: ADMIT Obstetrics & Gynecology; ATTEND Obstetrics & Gynecology
PROC: 10D00Z1 Extraction of Products of Conception, Low, Open Approach (ICD-10-PCS; principal; 2019-03-20)
DX: O14.14 Severe pre-eclampsia complicating childbirth (principal); O32.1XX0 Maternal care for breech presentation, not applicable or unspecified; O76 Abnormality in fetal heart rate and rhythm complicating labor and delivery; O60.14X0 Preterm labor third trimester with preterm delivery third trimester, not applicable or unspecified; Z79.899 Other long term (current) drug therapy; Z3A.33 33 weeks gestation of pregnancy; Z37.0 Single live birth
CPT/HCPCS: 1961; 36415; 76815; 76819; 80053; 80307; 81001; 82570; 83615; 84156; 84550; 85025; 85027; 86850; 86900; 86901; 88307; 94799; J0360; J0690; J1885; J2250; J2270; J2405; J2590; J3010; J3475; J3490